=== PATIENT | male | born 1985 ===

== ENCOUNTER 2018-11-23 17:32 | Emergency (ER) | payer OTHER ==
--- NOTE | 2018-11-23 18:35 | UC ---
Ear Complaint HPI - HPI Summary HPI Summary: 3 DAYS OF COUGHING AND CONGESTION. NO FEVER, N/V. TODAY DEVELOPED BILATERAL EAR PAIN LEFT>RIGHT. HEARING IS MUFFLED. - History of Current Complaint Chief Complaint: UCEar Stated Complaint: EAR COMPLAINT Time Seen by Provider: 11/23/18 17:57 Hx Obtained From: Patient Onset/Duration: Gradual Onset, Lasting Hours, Still Present Severity Initially: Moderate Severity Currently: Moderate Pain Intensity: 5 Pain Scale Used: 0-10 Numeric Aggravating Factors: Nothing Alleviating Factors: Nothing Associated Signs/Symptoms: Positive: Hearing Loss, URI Symptoms. Negative: Discharge - Allergies/Home Medications Allergies/Adverse Reactions: Allergies Allergy/AdvReac Type Severity Reaction Status Date / Time cephalexin [From Keflex] Allergy Severe Hives/Diff. Verified 11/23/18 17:44 Breathing/I tching codeine Allergy Severe Hives/Diff. Verified 11/23/18 17:44 Breathing/I tching Home Medications: Home Medications Acetaminophen 1,500 mg PO Q8HR 11/23/18 [History Confirmed 11/23/18] Dm/Acetaminophen/Doxylamine [Night Cold-Flu Relief Liq Gel] 1 each PO Q8HR 11/23 [History Confirmed 11/23/18] Levothyroxine TAB* [Synthroid 125 MCG TAB*] 125 mcg PO DAILY 11/23/18 [History Confirmed 11/23/18] PMH/Surg Hx/FS Hx/Imm Hx Endocrine History: Hypothyroidism - Surgical History Surgical History: Yes Surgery Procedure, Year, and Place: left ankle surgery - Family History Known Family History: Positive: Non-Contributory - Social History Alcohol Use: Rare Substance Use Type: None Smoking Status (MU): Current Some Day Smoker Review of Systems All Other Systems Reviewed And Are Negative: Yes Constitutional: Positive: Negative ENT: Positive: Ear Ache, Nasal Discharge Respiratory: Positive: Cough Cardiovascular: Positive: Negative Gastrointestinal: Positive: Negative Physical Exam Triage Information Reviewed: Yes Appearance: Well-Appearing, No Pain Distress, Well-Nourished Vital Signs: Initial Vital Signs Temp 98.1 F 11/23/18 17:35 Pulse 78 11/23/18 17:35 Resp 16 11/23/18 17:35 BP 126/93 11/23/18 17:35 Pulse Ox 97 11/23/18 17:35 Vital Signs Reviewed: Yes Eyes: Positive: Conjunctiva Clear ENT: Positive: Hearing grossly normal, Pharynx normal, Other - LEFT TM DULL, BULGING, ERYTHEMATOUS. EAC SLIGHTLY ERYTHEMATOUS. RIGHT TM NORMAL Neck: Positive: Supple, Nontender, No Lymphadenopathy Respiratory Exam: Normal Cardiovascular Exam: Normal Abdomen Description: Positive: Soft Musculoskeletal: Positive: No Edema Neurological: Positive: Alert Psychological: Positive: Age Appropriate Behavior Skin: Negative: Rashes Ear Complaint Course/Dx - Differential Dx/Diagnosis Provider Diagnosis: Left otitis media, Otitis externa of left ear Discharge - Sign-Out/Discharge Documenting (check all that apply): Patient Departure All imaging exams completed and their final reports reviewed: No Studies - Discharge Plan Condition: Stable Disposition: HOME Prescriptions: Amoxicillin PO (*) [Amoxicillin 500 MG CAP*] 1,000 mg PO Q12H #40 cap Ofloxacin 0.3% (Ear Drop)* [Floxin 0.3% OTIC.ALEXIA (Ear Drop)] 10 drop BOTH EARS DAILY #1 btl Patient Education Materials: Otitis Externa (ED), Ear Infection (ED) Referrals: [facility] [Outside] - If Needed Additional Instructions: CALL THE NUMBER BELOW FOR ASSISTANCE IN ESTABLISHING WITH A PCP An additional resource available to assist in finding the appropriate physician for your health care needs is [facility] ([facility]). You may contact them by calling [phone]. - Billing Disposition and Condition Condition: STABLE Disposition: Home
== END 2018-11-23 18:48 | disposition home or self-care (01) ==
LOC: UCEAST 17:32
DX: H66.92 Otitis media, unspecified, left ear (principal); H60.92 Unspecified otitis externa, left ear; Z88.1 Allergy status to other antibiotic agents; F17.210 Nicotine dependence, cigarettes, uncomplicated
CPT/HCPCS: 99202; G0463